=== PATIENT | male | born 1995 | race Asian ===

== ENCOUNTER 2016-05-21 20:58 | Emergency (ER) | payer OTHER ==
--- NOTE | 2016-05-21 21:30 | EDPHY ---
H & P Stated Complaint: DEAN, abd pain - Personal History Current Tetanus/Diphtheria Vaccine: Unsure Current Tetanus Diphtheria and Acellular Pertussis (TDAP): Unsure - Medical/Surgical History Hx Asthma: No Hx Chronic Respiratory Disease: No Hx Diabetes: No Hx Cardiac Disease: No Hx Renal Disease: No Hx Cirrhosis: No Hx Alcoholism: No Hx HIV/AIDS: No Hx Splenectomy or Spleen Trauma: No - Social History Smoking Status: Never smoked Time Seen by Provider: 05/21/16 21:27 HPI/ROS: CHIEF COMPLAINT: Abdominal pain HISTORY OF PRESENT ILLNESS: 21-year-old male primarily Mandarin Hebrew speaking. Assistance of [employer] escape wheel tooth cutter use. Patient complaining of 5-6 days of both right upper and right lower quadrant pain. Has been told that he has 12 gallstones in his gallbladder previously while in [place]. No history of abdominal surgeries. No nausea or vomiting. Bowel movements have been normal. No fever or chills. REVIEW OF SYSTEMS: A ten point review of systems was performed and is negative with the exception of the items mentioned in the HPI PAST MEDICAL & SURGICAL HISTORY: Cholelithiasis SOCIAL HISTORY:student. Nonsmoker. PHYSICAL EXAM (Prior to examination, patient consented to physical exam, hands were washed and my usual and customary physical exam procedures followed) 1) GENERAL: Well-developed, well-nourished, alert and oriented. Appears to be in no acute distress. 2) HEAD: Normocephalic, atraumatic 3) HEENT: Pupils equal, round, reactive to light bilaterally. Sclera anicteric. 4) NECK: Full range of motion, no meningeal signs. 5) LUNGS: Clear auscultation bilaterally, no wheezes, no rhonchi, no retractions. 6) HEART: Regular rate and rhythm, no murmur, no heave, no gallop. 7) ABDOMEN: No guarding, tender to palpation right upper and right lower quadrant with positive Ni's and positive McBurney's point pain. negative Rovsing's, negative peritoneal sign, 8) MUSCULOSKELETAL: Moving all extremities, no focal areas of tenderness, no obvious trauma. No peripheral edema or discoloration. 9) BACK: No CVA tenderness, no midline vertebral tenderness, no fluctuance, no step-off, no obvious trauma, no visual or palpable abnormality. 10) SKIN: No rash, no petechiae. 11) : Normal male external genitalia, bilateral testicles nontender, nonswollen, symmetrical, cremasteric reflex present. DIFFERENTIAL DIAGNOSIS: My differential diagnosis includes, but is not limited to, acute appendicitis, acute cholecystitis, bowel obstruction, acute pancreatitis, testicular torsion, gastritis and urinary tract infection. The patient understands that this diagnosis is provisional and can never be 100% accurate. This is a partial list of diagnoses considered. These considerations are based on history, physical exam, past history and reassessment. (Jean Aranda) Constitutional: Initial Vital Signs Temperature (C) 36.6 C 05/21/16 21:11 Heart Rate 95 05/21/16 21:11 Respiratory Rate 16 05/21/16 21:11 Blood Pressure 118/70 05/21/16 21:11 O2 Sat (%) 97 05/21/16 21:11 O2 Delivery Mode Room Air Allergies/Adverse Reactions: No Known Allergies Allergy (Unverified 05/21/16 21:11) Medical Decision Making - Diagnostics Imaging: Limited right lower quadrant ultrasound examination. History: Right lower quadrant pain x6 days. Technique: Sonographic evaluation of the right lower quadrant was performed utilizing a linear transducer and graded compression. Findings: The appendix is 5 mm in transverse diameter at the origin from the cecum and tapers normally, without evidence of pericholecystic fluid or wall thickening. Impression: 1. Normal sonographic appearance of the appendix as visualized. Results called to Oskar Aranda PA-C. Dictated By: Gigi Kurtz MD Right upper quadrant sonogram. History: Abdominal pain. Findings: Visualized aspects of the pancreas appear normal, tail obscured by bowel gas. Abdominal aorta is normal in caliber. There are echogenic foci present within the right hepatic lobe suggesting granulomas, without mass. Portal vein is patent. Right kidney measures 9.7 cm in sagittal diameter without hydronephrosis. There is a small subcortical cysts present within the upper aspect. No gallstones are identified. Gallbladder wall is normal thickness without pericholecystic fluid. Common bile duct is small in size at 3 mm. Impression: 1. Hepatic calcifications suggesting granulomatous disease. Otherwise normal sonogram of the right upper quadrant. Results called to Oskar Aranda PA-C. Dictated By: Gigi Kurtz MD CT Scan of the Abdomen and Pelvis (With Contrast) Clinical Indications: Abdominal Pain, possible Appendicitis Technique: 90 mL of Isovue 300 were given intravenously by machine power injection. Multidetector helical CT imaging was performed from the diaphragm to the symphysis pubis. Dose reduction techniques were utilized. Findings: CT Abdomen: Lung bases are clear. Liver, spleen, pancreas enhance normally. A small cortical cyst is present within the lower pole of the right kidney. The stomach is moderately distended. Visualized bowel loops appear normal. No peritoneal free fluid or air. In the right lower quadrant, the appendix is well-visualized and appears normal by CT criteria. CT Pelvis: No masses or free fluid. Impression: Normal CT examination of the abdomen and pelvis. No CT features of acute appendicitis. Results called to Oskar Aranda PA-C, at 11:15 PM. Dictated By: Gigi Kurtz MD Images reviewed by myself (Jean Aranda) ED Course/Re-evaluation: 10:48 p.m.: Re-evaluation. Discussed his imaging results. Re-examined his abdomen. He is focally tender McBurney's point. Will obtain CT imaging. Indications risks benefits discussed with patient he verbalizes consent. 11:45 p.m.: Re-evaluation with serial exams. With assistance of the [employer] escape wheel tooth cutter further conversation held at this time. Discussed his imaging results showing no evidence of acute abdominal surgical pathology. Doubt acute appendicitis, doubt testicular torsion. At this time he informs me that he has been seen in multiple hospitals for similar symptoms over the past 2 years and has had no specific etiology for his ongoing intermittent abdominal pain. He has never seen a rfp writer. I have of of recommended he follow up with a rfp writer in a provided him with this referral information. In the meantime he has been provided usual customary and GI precautions instructions and feels comfortable being discharged home. Case discussed Dr. Deborah Tilley in the ER. (Jean Aranda) The patient was evaluated and managed by the physician assistant program manager. I have reviewed this chart and I agree with the findings and plan of care as documented , as indicated by my signature. I am the secondary supervising physician. ( Deborah Tilley) - Data Points Laboratory Results: Laboratory Results 05/21/16 21:44 05/21/16 21:44 05/21/16 05/21/16 05/21/16 23:05 21:44 21:44 WBC 9.15 10^3/uL 10^3/uL (3.80-9.50) RBC 5.74 10^6/uL 10^6/uL (4.40-6.38) Hgb 18.1 g/dL H g/dL (13.7-17.5) Hct 51.4 % H % (40.0-51.0) MCV 89.5 fL fL (81.5-99.8) MCH 31.5 pg pg (27.9-34.1) MCHC 35.2 g/dL g/dL (32.4-36.7) RDW 11.6 % % (11.5-15.2) Plt Count 248 10^3/uL 10^3/uL (150-400) MPV 9.0 fL fL (8.7-11.7) Neut % (Auto) 67.3 % % (39.3-74.2) Lymph % (Auto) 24.6 % % (15.0-45.0) [place] % (Auto) 5.8 % % (4.5-13.0) Eos % (Auto) 1.6 % % (0.6-7.6) Baso % (Auto) 0.5 % % (0.3-1.7) Nucleat RBC Rel Count 0.0 % % (0.0-0.2) Absolute Neuts (auto) 6.15 10^3/uL 10^3/uL (1.70-6.50) Absolute Lymphs (auto) 2.25 10^3/uL 10^3/uL (1.00-3.00) Absolute Monos (auto) 0.53 10^3/uL 10^3/uL (0.30-0.80) Absolute Eos (auto) 0.15 10^3/uL 10^3/uL (0.03-0.40) Absolute Basos (auto) 0.05 10^3/uL 10^3/uL (0.02-0.10) Absolute Nucleated RBC 0.00 10^3/uL 10^3/uL (0-0.01) Immature Gran % 0.2 % % (0.0-1.1) Immature Gran # 0.02 10^3/uL 10^3/uL (0.00-0.10) Sodium 138 mEq/L mEq/L (134-144) Potassium 3.7 mEq/L mEq/L (3.5-5.2) Chloride 99 mEq/L mEq/L (97-110) Carbon Dioxide 27 mEq/l mEq/l (22-31) Anion Gap 12 mEq/L mEq/L (8-16) BUN 12 mg/dL mg/dL (7-23) Creatinine 0.8 mg/dL mg/dL (0.7-1.3) Estimated GFR > 60 Glucose 99 mg/dL mg/dL (70-100) Calcium 10.0 mg/dL mg/dL (8.5-10.4) Total Bilirubin 0.9 mg/dL mg/dL (0.1-1.4) Conjugated Bilirubin 0.5 mg/dL mg/dL (0.0-0.5) Unconjugated Bilirubin 0.4 mg/dL mg/dL (0.0-1.1) AST 30 IU/L IU/L (17-59) ALT 53 IU/L IU/L (21-72) Alkaline Phosphatase 52 IU/L IU/L (38-126) Total Protein 8.5 g/dL H g/dL (6.3-8.2) Albumin 4.7 g/dL g/dL (3.5-5.0) Lipase 119.0 IU/L IU/L (23-300) Urine Color YELLOW Urine Appearance CLEAR Urine pH 6.0 (5.0-7.5) Ur Specific [place] 1.019 (1.002-1.030) Urine Protein 2+ H (NEGATIVE) Urine Ketones NEGATIVE (NEGATIVE) Urine Blood 2+ H (NEGATIVE) Urine Nitrate NEGATIVE (NEGATIVE) Urine Bilirubin NEGATIVE (NEGATIVE) Urine Urobilinogen NEGATIVE EU EU (0.2-1.0) Ur Leukocyte Esterase NEGATIVE (NEGATIVE) Urine RBC 15-25 /hpf H /hpf (0-3) Urine WBC 1-3 /hpf /hpf (0-3) Ur Epithelial Cells Not Reported Urine Mucus TRACE /lpf /lpf (NONE-1+) Urine Glucose NEGATIVE (NEGATIVE) Departure - Departure Disposition: Home, Routine, Self-Care Clinical Impression: Abdominal pain Qualifiers: Abdominal location: right upper quadrant Qualified Code(s): R10.11 - Right upper quadrant pain Condition: Good Instructions: Acute Abdominal Pain (ED), Chronic Abdominal Pain (ED) Additional Instructions: Seek immediate medical attention if you develop new or worsening symptoms, if you develop fevers, chills, inability to tolerate oral intake or any other symptoms that concerns you. Referrals: Karon Valentino MD [Medical Doctor] - 2-3 days, if not improved (Dr. Karon Valnetino is a rfp writer (stomach and intestine specialist))
[2016-05-21 21:47] VITALS: RESP 16; TEMP 97.9; O2SAT 97
[2016-05-21 21:54] LABS: % IMMATURE GRANULYOCYTES 0.2 % (0.0-1.1); ABSOLUTE IMMATURE GRANULOCYTES 0.02 10^3/uL (0.00-0.10); ADD DIFF? NO; ADD MORPH? NO; ADD SCAN? NO; ATYPICAL LYMPHOCYTE FLAG 0 (0-99); FRAGMENT RBC FLAG 0 (0-99); HEMATOCRIT 51.4 % (40.0-51.0); HEMOGLOBIN 18.1 g/dL (13.7-17.5); LEFT SHIFT FLG 0 (0-99); LIPEMIA HEMOLYSIS FLAG 90 (0-99); MEAN CELL HEMOGLOBIN 31.5 pg (27.9-34.1); MEAN CELL HEMOGLOBIN CONCENTR. 35.2 g/dL (32.4-36.7); MEAN CELL VOLUME 89.5 fL (81.5-99.8); PLATELET CLUMPS FLAG 10 (0-99); PLATELET COUNT 248 10^3/uL (150-400); RED BLOOD CELL COUNT 5.74 10^6/uL (4.40-6.38); RED CELL DISTRIBUTION WIDTH 11.6 % (11.5-15.2)
[2016-05-21 22:14] LABS: ALANINE AMINOTRANSFERASE 53 IU/L (21-72); ALBUMIN 4.7 g/dL (3.5-5.0); ALKALINE PHOSPHATASE 52 IU/L (38-126); ANION GAP 12 mEq/L (8-16); ASPARTATE AMINOTRANSFERASE 30 IU/L (17-59); BILIRUBIN,TOTAL 0.9 mg/dL (0.1-1.4); BILIRUBIN-CONJUGATED 0.5 mg/dL (0.0-0.5); BILIRUBIN-UNCONJUGATED 0.4 mg/dL (0.0-1.1); CARBON DIOXIDE 27 mEq/l (22-31); CHLORIDE 99 mEq/L (97-110); CREATININE 0.8 mg/dL (0.7-1.3); GLOMERULAR FILTRATION RATE > 60; GLUCOSE 99 mg/dL (70-100); POTASSIUM 3.7 mEq/L (3.5-5.2); SODIUM 138 mEq/L (134-144); TOTAL PROTEIN 8.5 g/dL (6.3-8.2)
[2016-05-21] MEDS ORDERED: IOPAMIDOL (ISOVUE-300) 100 ML BTL IV ONE (22:49)
[2016-05-21 23:18] LABS: COLOR YELLOW; LEUKOCYTE ESTERASE,URINE NEGATIVE (NEGATIVE); NITRITE,URINE NEGATIVE (NEGATIVE)
[2016-05-21 23:20] LABS: MUCUS TRACE /lpf (NONE-1+); RBC,URINE 15-25 /hpf (0-3)
[2016-05-22 00:06] VITALS: BP 96/61; PULSE 68
== END 2016-05-22 00:32 | disposition home or self-care (01) ==
DX: R10.11 Right upper quadrant pain (principal)
CPT/HCPCS: Q9967